=== PATIENT | female | born 1960 | race African-American/Black ===

== ENCOUNTER 2016-10-06 16:33 | Emergency (ER) | payer MEDICARE | END 2016-10-06 18:45 | disposition home or self-care (01) | LOC: ER 16:33 | DX: K28.9 Gastrojejunal ulcer, unspecified as acute or chronic, without hemorrhage or perforation (principal); F17.210 Nicotine dependence, cigarettes, uncomplicated | CPT/HCPCS: 36415; 96361; 96374; 96375 ==

== ENCOUNTER 2017-02-02 13:54 | Emergency (ER) | payer MEDICARE | END 2017-02-02 14:48 | disposition home or self-care (01) | LOC: ER 13:54 | DX: J02.0 Streptococcal pharyngitis (principal); K27.9 Peptic ulcer, site unspecified, unspecified as acute or chronic, without hemorrhage or perforation; F17.200 Nicotine dependence, unspecified, uncomplicated | CPT/HCPCS: 87651; 96372; J0561 ==